=== PATIENT | female | born 2000 | race Caucasian/White ===

== ENCOUNTER 2023-01-05 06:32 | Inpatient (IN) ==
[2023-01-05] MEDS ORDERED: LIDOCAINE 1% LOCAL 20 ML VIAL INFIL PRN (07:33)
[2023-01-05] MEDS ORDERED: ePHEDrine sulfate 50 MG/ML AMP ONE (07:38)
[2023-01-05] MEDS ORDERED: BUPIVACAINE 0.25% PF 30 ML VIAL ONE (07:38)
[2023-01-05] MEDS ORDERED: fentaNYL citrate PF 100 MCG/2 ML VIAL ONE (07:38)
[2023-01-05] MEDS ORDERED: SODIUM CHLORIDE 0.9% PF INJ 10 ML VIAL ONE (07:38)
[2023-01-05] MEDS ORDERED: LIDOCAINE 2%/EPINEPHRINE 1:200,000 20 ML PF ONE (07:38)
[2023-01-05] MEDS ORDERED: fentaNYL 2MCG/ML ROPIVACAINE 1.25MG/ML 100 ML BAG EPI ONE (07:39)
--- NOTE | 2023-01-05 07:40 | History & Physical Report ---
Date of Service January 05, 2023 Assessment & Plan (1) Term : Plan: Admit in active labor History of Present Illness Chief Complaint: onset of labor Primary Care Provider: MARIA ELENA Pate 22 GF [id number] at 39 weeks admitted in active labor. GBS is negative, Allergies Allergy/AdvReac Type Severity Reaction Status Date / Time amoxicillin [From Augmentin] Allergy Hives Verified 12/31/21 20:49 clavulanic acid Allergy Hives Verified 12/31/21 20:49 [From Augmentin] Home Medications Medication Instructions Recorded Confirmed Type levothyroxine 25 mcg tablet 25 mcg PO DAILY 10/24/22 01/05/23 History (Synthroid) vits no.124-ferrous fum 1 tab PO DAILY 10/24/22 01/05/23 History 27 mg iron-folic acid 800 mcg tablet ( Vitamin) Patient History Medical History Asthma as a child Hypothyroid Surgical History H/O oral surgery 2014 [place] teeth extracted 2015 Family History Other No significant family history Social History Smoking Status: Never smoker Second Hand Exposure: No; Do You Dip or Chew Tobacco: No; Hx Alcohol Use: No Hx Substance Use: No Preferred Language: Tam[place] Communication Ability: Effective [employer] Required: No Beliefs That Will Affect Care: None marital status: Single Current Living Situation: Significant Other Other Information That Helps Us Care for You: No Feels Safe at Home: Yes Safety Concerns: Feels Safe At This Time Assistive Devices: None 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 Review of Systems All systems reviewed & are unremarkable except as noted in HPI & below Physical Exam Constitutional: WD/WN, vitals as above Gastrointestinal (Abdomen): Inspection/Auscultation: abdomen normal to inspection Musculoskeletal: Extremities: extremities normal to inspection Skin: no rashes, warm and dry Neurologic: patellar DTR's 2+ bilat, sensation intact Psychiatric: A+Ox3, euthymic affect Genitourinary: no vaginal lesions, no adnexal mass Manual OB Exam: + cervical dilation 6 cm and 7 cm, + cervical effacement 100% and + station -1 Results & Data Vital Signs (Past 12 Hours) Vital Signs Temp Pulse Resp BP 01/05/23 07:04 37.0 C 91 H 20 128/77 01/05/23 06:59 91 H 128/77 Code Status & VTE Plan VTE Prophylaxis Plan VTE Prophylaxis will be ordered: No Monitoring External Monitor Cat 1
[2023-01-05 08:03] LABS: Hematocrit (blood only) 40.5 % (37.0-47.0); Hemoglobin 14.4 g/dl (12.0-16.0); Mean Corpuscular Hemoglobin 32.4 pg (25.0-34.0); Mean Corpuscular Hgb Conc 35.6 g/dL (32.0-36.0); Mean Platelet Volume 11.5 fL (9.4-12.4); Platelet Count 162 K/uL (130-400); RDW Coefficient of Variation 13.5 % (11.5-14.5); RDW Standard Deviation 44.8 fL (36.4-46.3); Red Blood Count 4.45 M/uL (4.20-5.40); White Blood Count 14.41 K/ul (4.8-10.8)
[2023-01-05] MEDS: LACTATED RINGER'S 1,000 ML IV PRN ×2 (08:03→08:56)
--- NOTE | 2023-01-05 08:39 | Anesthesiology Consultation ---
Date of Service January 05, 2023 Assessment & Plan Chart Review Chart Review: Acceptable Risk for Labor Epidural Consults Requested none History Height/Weight Height: 5 ft 1 in Weight: 81.647 kg Allergies Allergy/AdvReac Type Severity Reaction Status Date / Time amoxicillin [From Augmentin] Allergy Hives Verified 12/31/21 20:49 clavulanic acid Allergy Hives Verified 12/31/21 20:49 [From Augmentin] Medications Home Medications Medication Instructions Recorded Confirmed Last Taken levothyroxine 25 mcg tablet 25 mcg PO DAILY 10/24/22 01/05/23 01/04/23 07:00 (Synthroid) vits no.124-ferrous fum 1 tab PO DAILY 10/24/22 01/05/23 01/04/23 22:00 27 mg iron-folic acid 800 mcg tablet ( Vitamin) Active Medications Generic Name Dose Route Start Last Admin Trade Name Freq PRN Reason Stop Dose Admin Lactated Ringer's 1,000 mls @ 125 mls/hr 01/05/23 07:33 01/05/23 08:03 Lr IV 01/07/23 07:32 999 mls/hr .Q8H PRN Administration L&D Protocol Protocol Past Medical History Medical History Asthma as a child Hypothyroid Past Family History Family History Other No significant family history Past Surgical History Surgical History H/O oral surgery 2014 [place] teeth extracted 2016 Social History Smoking Status: Never smoker Do You Dip or Chew Tobacco: No Hx Alcohol Use: No Hx Substance Use: No substance use type: does not use Physical Exam Vital Signs Last Vital Signs Temp 37.0 C 01/05/23 07:04 Pulse 86 01/05/23 08:34 Resp 20 01/05/23 07:04 BP 104/58 L 01/05/23 08:34 Pulse Ox 98 01/05/23 08:34 Testing Laboratory Results 01/05/23 07:43
[2023-01-05] MEDS ORDERED: fentaNYL 2MCG/ML ROPIVACAINE 1.25MG/ML 100 ML BAG EPI PRN (08:47)
[2023-01-05] MEDS ORDERED: NALOXONE HCL 0.4 MG/1 ML VIAL/CARP IV PRN (08:47)
[2023-01-05] MEDS ORDERED: NALOXONE HCL 1 MG in SODIUM CHLORIDE 0.9% 1000ML 1,000 ML IV PRN (08:47)
[2023-01-05] MEDS ORDERED: BUPIVACAINE 0.25% PF 30 ML VIAL EPI STA (08:47)
[2023-01-05] MEDS ORDERED: SODIUM CHLORIDE 0.9% PF INJ 10 ML VIAL EPI STA (08:47)
[2023-01-05] MEDS ORDERED: fentaNYL citrate PF 100 MCG/2 ML VIAL EPI PRN (08:47)
[2023-01-05] MEDS ORDERED: LIDOCAINE 2%/EPINEPHRINE 1:200,000 20 ML PF EPI STA (08:47)
[2023-01-05] MEDS ORDERED: fentaNYL citrate PF 100 MCG/2 ML VIAL EPI STA (08:47)
[2023-01-05] MEDS ORDERED: diphenhydrAMINE 50 MG/ML VIAL IV PRN (08:47)
[2023-01-05] MEDS ORDERED: NALBUPHINE HCL INJ 10 MG/ML AMP IV PRN (08:47)
[2023-01-05] MEDS ORDERED: BUPIVACAINE 0.25% PF 30 ML VIAL EPI PRN (08:47)
[2023-01-05] MEDS ORDERED: ROPIVACAINE 0.5% PF 5 MG/ML 20 ML VIAL EPI PRN (08:47)
[2023-01-05] MEDS ORDERED: SODIUM CHLORIDE 0.9% PF INJ 10 ML VIAL EPI PRN (08:47)
[2023-01-05] MEDS ORDERED: ePHEDrine sulfate 50 MG/ML AMP IV PRN (08:47)
[2023-01-05] MEDS ORDERED: LIDOCAINE 2% MPF LOCAL 5 ML VIAL EPI PRN (08:47)
--- NOTE | 2023-01-05 10:48 | Labor Progress Brief Note ---
Date of Service January 05, 2023 Assessment & Plan Admission and Anticipated Discharge Date Admission Date: January 05, 2023 Physical Exam Genitourinary: Manual OB Exam: + cervical dilation 8 cm, + cervical effacement 100%, + station -1 and + amniotic fluid clear OB Exam Monitor Tracing: + external FHT monitor used, + external uterine monitor used, + category I and + normal FHT variability Results & Data Vital Signs (Past 12 Hours) Vital Signs Temp Pulse Resp BP Pulse Ox 01/05/23 07:04 37.0 C 91 H 20 128/77 01/05/23 10:46 91 H 01/05/23 10:46 114/59 L 01/05/23 10:40 20 01/05/23 10:40 36.8 C 20 01/05/23 10:23 91 H 01/05/23 10:23 114/60 01/05/23 10:07 86 01/05/23 10:07 107/59 L 01/05/23 09:52 81 01/05/23 09:52 103/59 L 01/05/23 09:37 93 H 01/05/23 09:37 111/64 01/05/23 09:22 87 01/05/23 09:22 114/58 L 01/05/23 08:59 98 01/05/23 08:59 87 01/05/23 08:54 99 01/05/23 08:54 87 01/05/23 08:51 90 01/05/23 08:51 93 H 01/05/23 08:51 107/66 01/05/23 08:49 99 01/05/23 08:49 89 01/05/23 08:44 99 01/05/23 08:44 84 01/05/23 08:44 121/67 01/05/23 08:39 98 01/05/23 08:39 84 01/05/23 08:40 86 01/05/23 08:40 107/61 01/05/23 08:34 98 01/05/23 08:34 86 01/05/23 08:34 84 01/05/23 08:34 104/58 L 01/05/23 08:32 90 01/05/23 08:32 105/57 L 01/05/23 08:30 85 01/05/23 08:30 107/61 01/05/23 08:29 98 01/05/23 08:29 85 01/05/23 08:28 84 01/05/23 08:28 110/66 01/05/23 08:27 89 L 01/05/23 08:26 94 H 01/05/23 08:27 96 H 01/05/23 08:26 118/67 01/05/23 08:24 98 01/05/23 08:24 86 01/05/23 08:19 100 01/05/23 08:19 108 H 01/05/23 08:14 99 01/05/23 08:14 105 H 01/05/23 08:13 94 01/05/23 08:13 114 H 01/05/23 08:09 99 01/05/23 08:09 104 H 01/05/23 08:04 99 01/05/23 08:04 93 H 01/05/23 08:00 100 H 01/05/23 08:00 129/83 01/05/23 07:59 99 01/05/23 07:59 98 H 01/05/23 06:59 91 H 128/77
[2023-01-05] MEDS: OXYTOCIN 30 UNITS/500 ML BAG IV PRN ×2 (14:30→15:15)
--- NOTE | 2023-01-05 14:50 | Delivery Summary ---
Vaginal Delivery Summary Date of Service January 05, 2023 Vaginal Delivery Summary live male SAUL over intact perineum with delayed cord clamping and Apgars 8/9 weight pending. Cord blood obtained followed by spontaneous delivery of intact placenta. No tears. EBL 150 ml. Final sponge and instrument count are correct. Mom and baby stable.
[2023-01-05] MEDS ORDERED: ACETAMINOPHEN 325 MG TAB PO PRN (15:16)
[2023-01-05] MEDS ORDERED: BENZOCAINE 20% SPRY 85 APPLN/85 GM CAN EXT PRN (15:16)
[2023-01-05] MEDS ORDERED: HYDROCORTISONE ACETATE 25 MG SUPP PR PRN (15:16)
[2023-01-05] MEDS ORDERED: bisacodyL 10 MG SUPP PR PRN (15:16)
[2023-01-05] MEDS ORDERED: OXYTOCIN 30 UNITS/500 ML BAG IV PRN (15:16)
[2023-01-05] MEDS ORDERED: DIPHTHERIA/TETANUS/PERTUSSIS Vaccine (Tdap, Age 7+yrs) 0.5mL SYR/VL IM ONE (15:16)
--- NOTE | 2023-01-05 15:33 | Anesthesia Procedure Note ---
Date of Service January 05, 2023 Anesthesia Post Epidural Note Vital Signs Vital Signs: Temp Pulse Resp BP Pulse Ox 36.8 C 106 H 20 114/62 96 01/05/23 13:50 01/05/23 15:22 01/05/23 10:40 01/05/23 15:22 01/05/23 14:14 Notes Mental Status: alert / awake / arousable Nausea / Vomiting: adequately controlled Pain: adequately controlled Airway Patency, RR, SpO2: stable & adequate BP & HR: stable & adequate Hydration State: stable & adequate Neuraxial Anesthesia: was administered and sensory block is resolving Anesthetic Complications: no major complications apparent and Pt Satisfied with anesthetic care Epidural: Removed without complications and With tip intact
[2023-01-05] MEDS: IBUPROFEN 600 MG TAB PO PRN (18:30)
[2023-01-05] MEDS: DOCUSATE SODIUM 100 MG CAP PO SCH (21:02)
[2023-01-06] MEDS: IBUPROFEN 600 MG TAB PO PRN ×4 (00:23→18:36)
[2023-01-06] MEDS: LEVOTHYROXINE SODIUM 25 MCG TABLET PO SCH (06:30)
[2023-01-06 06:46] LABS: Hematocrit (blood only) 30.9 % (37.0-47.0); Hemoglobin 10.7 g/dl (12.0-16.0); Mean Corpuscular Hemoglobin 31.8 pg (25.0-34.0); Mean Corpuscular Hgb Conc 34.6 g/dL (32.0-36.0); Mean Corpuscular Volume 91.7 fL (80.0-100.0); Mean Platelet Volume 11.7 fL (9.4-12.4); Platelet Count 144 K/uL (130-400); RDW Coefficient of Variation 13.8 % (11.5-14.5); RDW Standard Deviation 46.3 fL (36.4-46.3); Red Blood Count 3.37 M/uL (4.20-5.40); White Blood Count 13.11 K/ul (4.8-10.8)
--- NOTE | 2023-01-06 08:03 | Obstetrical Progress Note ---
Date of Service January 06, 2023 Assessment & Plan (1) Normal course: Continue routine course Discharge home today if baby is discharged with instructions (2) Mother currently breast-feeding: Breast-feeding education given at bedside Subjective Ambulation: ambulating normally Voiding: no voiding problems Passing Gas:: Yes Diet Tolerance:: regular diet Lochia:: Moderate Feeding Type:: breast feeding Current Pain Level(1-10): 0 Doing well, wants to go home today if baby is discharged Physical Exam Constitutional WD/WN, vitals as above Respiratory normal respiratory effort, lungs clear to auscultation Cardiovascular RRR, no murmur, no edema Gastrointestinal (Abdomen) normal bowel sounds, soft, nontender, no hepatosplenomegaly fundus below U Results & Data Vital Signs (Past 12 Hours) Vital Signs Temp Pulse Resp BP Pulse Ox O2 Del Method 01/06/23 04:24 36.7 C 77 18 106/68 99 Room Air 01/06/23 00:17 36.8 C 89 18 98/63 L 96 Room Air Laboratory Results Laboratory Results WBC 13.11 K/ul (4.8-10.8) H 01/06/23 06:12 RBC 3.37 M/uL (4.20-5.40) L 01/06/23 06:12 Hgb 10.7 g/dl (12.0-16.0) L D 01/06/23 06:12 Hct 30.9 % (37.0-47.0) L 01/06/23 06:12 MCV 91.7 fL (80.0-100.0) 01/06/23 06:12 MCH 31.8 pg (25.0-34.0) 01/06/23 06:12 MCHC 34.6 g/dL (32.0-36.0) 01/06/23 06:12 RDW Std Deviation 46.3 fL (36.4-46.3) 01/06/23 06:12 RDW Coeff of Satnosh 13.8 % (11.5-14.5) 01/06/23 06:12 Plt Count 144 K/uL (130-400) 01/06/23 06:12 MPV 11.7 fL (9.4-12.4) 01/06/23 06:12
[2023-01-06] MEDS ORDERED: PRENATAL VITAMIN 1 TAB PO SCH (09:00)
[2023-01-06] MEDS: PRENATAL VITAMIN 1 TAB PO SCH (09:19)
[2023-01-06] MEDS: DOCUSATE SODIUM 100 MG CAP PO SCH ×2 (09:19→20:18)
[2023-01-06] MEDS ORDERED: bisacodyL 5 MG TABEC PO SCH (20:00)
[2023-01-07] MEDS: LEVOTHYROXINE SODIUM 25 MCG TABLET PO SCH (06:14)
[2023-01-07] MEDS: IBUPROFEN 600 MG TAB PO PRN (06:18)
[2023-01-07 07:21] LABS: Hematocrit (blood only) 33.7 % (37.0-47.0); Hemoglobin 11.4 g/dl (12.0-16.0)
[2023-01-07] MEDS: PRENATAL VITAMIN 1 TAB PO SCH (09:27)
[2023-01-07] MEDS: DOCUSATE SODIUM 100 MG CAP PO SCH (09:27)
--- NOTE | 2023-01-07 10:00 | Obstetrical Progress Note ---
Date of Service January 07, 2023 Assessment & Plan (1) Normal course: PPD #2 pt malik augustine d/c home with instructions Results & Data Vital Signs (Past 12 Hours) Vital Signs Temp Pulse Resp BP Pulse Ox O2 Del Method 01/07/23 01:30 36.9 C 73 16 107/72 98 Room Air
== END 2023-01-07 11:40 | disposition home or self-care (01) | DRG 807 ==
LOC: OPB 06:32 → 4S1 06:33 → 4E2 17:46